=== PATIENT | male | born 1960 | race Caucasian/White ===

== ENCOUNTER 2018-11-25 02:22 | Inpatient (IN) | payer OTHER ==
[2018-11-25] MEDS ORDERED: cefTRIAXone\\ROCEPHIN 1 GM VIAL ONE (03:39)
[2018-11-25] MEDS ORDERED: Acetaminophen 325 MG TAB PO PRN (06:22)
[2018-11-25] MEDS ORDERED: Ondansetron PF 4 MG/2 ML Vial IVP PRN ×2 (06:22→20:32)
[2018-11-25] MEDS ORDERED: Sodium Chloride 0.9% 1,000 ML IV SCH (06:22)
[2018-11-25] MEDS ORDERED: Ondansetron ODT 4 MG TAB SL PRN (06:22)
[2018-11-25 06:49] VITALS: BMI 29.7
--- NOTE | 2018-11-25 08:41 | CT ---
PRELIMINARY REPORT/[facility]/EMERGENCY AFTER HOURS PROCEDURE: EXAM: CT Abdomen and Pelvis Without Contrast EXAM DATE/TIME: 11/25/2018 3:04 AM CLINICAL HISTORY: 58 years old, male; Signs and symptoms; Other: Hematuria; Patient HX: M60 reports blood in urine that began today, has never occurred before. PT did not have catheter in prior to today. PT reports abdom inal pain and pain during catheter insertion. PT denies blood in stool, denies vomiting blood, denies HX of kidney stones TECHNIQUE: Imaging protocol: Axial computed tomography images of the abdomen and pelvis without contrast. Bates l reformatted images were created and reviewed. COMPARISON: No relevant prior studies available. FINDINGS: ABDOMEN: Liver: Normal. Gallbladder and bile ducts: Cholelithiasis, without CT evidence of acute cholecystitis. Pancreas: Normal. Spleen: Normal. Adrenals: Normal. Kidneys and ureters: Nonobstructive 2 mm left nephrolithiasis. Stomach and bowel: Minimal scattered colonic diverticulosis. Appendix: Appendix is normal. PELVIS: Bladder: Urinary bladder decompressed by James catheter. Mild urinary bladder wall thickening with mi nimal adjacent fat stranding, possibly cystitis. Reproductive: Unremarkable as visualized. ABDOMEN and PELVIS: Intraperitoneal space: Normal. No free air. No significant fluid collection. Bones/joints: Degenerative changes of the hips and sacral iliac joints. Multilevel thoracolumbar spine degenerative changes. Soft tissues: Normal. Vasculature: Phleboliths within the pelvis. Mild atherosclerotic disease of the abdominal aorta and i liac arteries. Lymph nodes: Normal. No enlarged lymph nodes. IMPRESSION: Mild urinary bladder wall thickening with minimal adjacent fat stranding, possibly cystitis. Thank you for allowing us to participate in the care of your patient. Dictated and Authenticated by: Fox Keller MD 11/25/2018 3:27 AM Central Time ([place] & [place]) FINAL REPORT EMERGENCY AFTER HOURS CT STONE PROTOCOL: FINDINGS/IMPRESSION: I agree with the preliminary report provided by Jw. There is wall thickening involving the bladder with perivesicular fat stranding, suspicious for cystitis. No hydronephrosis evident. There is left-s ided nephrolithiasis. There are cortical calcifications within the right kidney. There is a gallstone within the gallbladder. There is scattered diverticula involving the colon. There are mild vascular calcifications involving the abdominal aorta. POS: BH
[2018-11-25] MEDS ORDERED: Prevnar 13-Val Conj/PF 0.5 ML SYRINGE IM ONE (09:15)
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
[2018-11-25] MEDS: Acetaminophen 325 MG TAB PO PRN ×2 (17:49→22:53)
[2018-11-25] MEDS ORDERED: Bisacodyl 10 MG SUPP PR PRN (20:35)
[2018-11-25] MEDS ORDERED: Nitroglycerin 0.4 MG TAB (25 Tab Bottle) SL PRN (20:35)
[2018-11-25] MEDS ORDERED: HALOPERIDOL DECANOATE IM SCH (20:45)
[2018-11-25] MEDS: Sodium Chloride 0.9% 1,000 ML IV SCH (20:58)
[2018-11-25] MEDS: Haloperidol 5 MG TAB PO SCH (20:59)
[2018-11-25] MEDS: Divalproex Sodium 250 MG (DR) TAB PO SCH (20:59)
[2018-11-25] MEDS ORDERED: Ibuprofen 600 MG TAB PO PRN (21:00)
[2018-11-26] MEDS: cefTRIAXone\\ROCEPHIN 1 GM in Sodium Chloride 0.9% 100 ML IVPB SCH (01:31)
[2018-11-26 06:47] LABS: #Eosinphils 0.5 thou/uL (0.0-0.7); #Lymphocytes 2.2 thou/uL (1.20-3.40); #Monocytes 0.8 thou/uL (0.11-0.59); #Neutrophils 3.3 thou/uL (1.40-6.50); %Basophils 0.6 % (0.0-1.0); %Lymphocytes 32.8 % (21.0-51.0); %Monocytes 11.2 % (0.0-10.0); %Neutrophils 48.4 % (42.0-75.0); Hemoglobin 12.2 g/dL (14.0-18.0); Mean Corpuscular HGB CONC 32.2 g/dL (32.0-36.0); Mean Corpuscular Hemoglobin 27.8 pg (27.0-31.0); Mean Corpuscular Volume 86.3 fL (78.0-98.0); Mean Platelet Volume 6.9 fL (7.4-10.4); Platelet Count 94 thou/uL (130-400); RBC Distribution Width 12.3 % (11.5-14.5); Red Blood Cell (RBC) Count 4.39 mill/uL (4.70-6.10); White Blood Cell (WBC) Count 6.7 thou/uL (4.8-10.8)
[2018-11-26 07:00] LABS: Anion Gap 8 mmol/L (10-20); BUN (Urea Nitrogen) 8 mg/dL (8.4-25.7); Calc. Creatinine Clearance 150 mL/min (70-130); Calcium 8.3 mg/dL (7.8-10.44); Carbon Dioxide 26 mmol/L (22-29); Chloride 113 mmol/L (98-107); Estimated GFR-MDRD Greater than 90; Glucose 82 mg/dL (70-105); Potassium 3.6 mmol/L (3.5-5.1); Sodium 143 mmol/L (136-145)
--- NOTE | 2018-11-26 07:45 | HP ---
PRIMARY CARE DOCTOR: Patient lives in a [facility] and sees Dr. Saul Uriostegui. CODE STATUS: Full code. TIME OF EVALUATION: 8:00 p.m. CHIEF COMPLAINT: For this patient is jey hematuria. HISTORY OF PRESENT ILLNESS: This is a 58-year-old male patient, past medical history of chronic pain, hep C, cirrhosis, GERD, encephalopathy, EtOH abuse, homeless, and peripheral neuropathy with leg weakness, came to the hospital after having jey hematuria. He was transferred from [place]. As per report, patient does not use James in the [facility]p. At baseline as per report, he is alert and oriented x2. Patient is not very cooperative to interview. No good information can be gathered at this point. James is still in place with hematuria. Urology has seen the patient and the plan is to remove James around 2:00 a.m. to see if hematuria resolves. Patient has not voided too much urine. We will place the patient on some NS and watch for urinary output. Was unable to obtain. Patient is not cooperative to interview. Answers very simple questions with yes or no. PAST MEDICAL HISTORY: As mentioned in the HPI. PAST SURGICAL HISTORY: Unable to obtain. PSYCH HISTORY: Schizophrenia, dementia, insomnia, and depression. FAMILY HISTORY: Reviewed and non contributory to current presentation. SOCIAL HISTORY: Patient lives in a long-term care facility in [facility]. Patient denies alcohol use. No drug use. Patient currently uses tobacco. Smokes cigarettes daily, has smoked for 30 years. KNOWN ALLERGIES: No known drug allergies reported. MEDICATION: 1. Aspirin. 2. Benztropine. 3. Bisacodyl. 4. Folic acid. 5. Haloperidol. 6. Lactulose. 7. Paroxetine. 8. Potassium. 9. Exelon. PHYSICAL EXAMINATION: VITAL SIGNS: On presentation, blood pressure 148/105 with heart rate 113, respiratory rate was 18, and oxygen saturation was 100 on room air. The vital signs have normalized. GENERAL APPEARANCE: The patient is alert and oriented x2, not very cooperative to interview. HEENT: Eyes; normal conjunctivae. Moist oral mucosa. Anicteric. No JVD. RESPIRATORY: Bilateral air entry. No rales. No wheezes. Symmetric expansion. CARDIOVASCULAR: Normal rate, regular rhythm. No murmurs. No gallop. No edema. ABDOMEN: Soft, although mildly tender in the lower abdomen. Normal bowel sounds. MUSCULOSKELETAL: Baseline range of motion. No sternal tenderness. SKIN: Warm, intact. No pallor. No rash. No redness. Peripheral pulses are present. Capillary refill seems to be intact. NEUROLOGIC: Unable to fully explore. As mentioned, patient is alert and oriented x2, seems to be at baseline as per medical records. PSYCH: Unable to fully explore. Patient is in good mood. LABORATORY DATA: Reviewed. The patient has a white count 9.5, hemoglobin 14.1, MCV 83.9, platelet count 110. Coagulation; PT 14.9 with INR 1.2, PTT 32.6. Chemistry ; sodium 142, potassium 3.5, chloride 106, carbon dioxide 25, anion gap 15, BUN 12 , creatinine 0.76, GFR greater than 90, glucose 95, calcium 9.1, creatine kinase not done. Total bilirubin 1. LFTs were negative. Troponin not done. Serum total protein 6.5, albumin 3.6, globulin 2.9, albumin globulin ratio is 1.2. Urine was done and showed large amount of nitrites, blood, glucosuria, white count 7 to 10, rbc's greater than 50. IMAGING STUDIES: Abdomen and pelvis CT was done. The patient has wall thickening involving the bladder with perivesicular fat stranding suspicious for cystitis. No hydronephrosis. Left-sided nephrolithiasis. There are cortical calcifications within the right kidney. There is a gallstone within the gallbladder. There is a scattered diverticula involving the colon. There are mild vascular calcification involving the abdominal aorta. ASSESSMENT AND PLAN: The patient will be placed in the hospital with following medical problems: 1. Hematuria. Urology has seen the patient. We will follow recommendations. Plan is to receive the James and see how the patient does. The patient has not much urinary output. We will start the patient on some low-dose NS given the low mentation of the patient. It is hard to say if the patient is eating properly. 2. History of gastroesophageal reflux disease. Reconcile home medications. 3. History of schizophrenia. Continue home medications. 4. History of encephalopathy. The patient is alert and oriented x2 as per report , this is the baseline for the patient. 5. Deep venous thrombosis prophylaxis. Continue SCDs. 6. Possible cystitis. We will continue the patient on Rocephin unless otherwise specified by Urology. We will follow cultures and adjust treatment as per sensitivity. Job ID: [id number] MTDD
[2018-11-26] MEDS: Thiamine 100 MG TAB PO SCH (08:07)
[2018-11-26] MEDS: Folic Acid 1 MG TAB PO SCH (08:07)
[2018-11-26] MEDS: Finasteride 5 MG TAB PO SCH (08:07)
[2018-11-26] MEDS: Potassium Chloride 10 MEQ TAB PO SCH (08:07)
[2018-11-26] MEDS: PARoxetine 20 MG TAB PO SCH (08:07)
[2018-11-26] MEDS: Tamsulosin HCl 0.4 MG CAP PO SCH (08:07)
[2018-11-26] MEDS: Haloperidol 5 MG TAB PO SCH ×2 (08:08→20:35)
[2018-11-26] MEDS: Acetaminophen 325 MG TAB PO PRN ×2 (08:08→14:49)
[2018-11-26] MEDS: Stress 600 With Zinc 1 TAB PO SCH (08:08)
[2018-11-26] MEDS: Divalproex Sodium 250 MG (DR) TAB PO SCH ×3 (08:09→20:35)
[2018-11-26] MEDS: Rivastigmine 9.5mg/24 Hour PATCH TOP SCH (09:07)
--- NOTE | 2018-11-26 09:48 | PDOC.PN ---
- Subjective Encounter Start Date: 11/26/18 Encounter Start Time: 09:47 Mr. Diane was seen today in follow-up of hematuria. He says he feels like he was" poisoned" because he slept all day yesterday. He notes " pain all over". - Objective Resuscitation Status - Order Detail: 11/25/18 20:32 Resuscitation Status Routine Resuscitation Status: FULL: Full Resuscitation MAR Reviewed: Yes Vital Signs & Weight: Vital Signs (12 hours) Temp Pulse Resp BP Pulse Ox 11/26/18 07:35 97.8 F 75 18 113/80 92 L 11/26/18 04:00 97.6 F 75 18 125/82 94 L 11/26/18 00:00 98.2 F 80 16 101/67 94 L Weight Weight 196 lb I&O: 11/25/18 11/26/18 11/27/18 06:59 06:59 06:59 Intake Total 1800 Output Total 1655 Balance 145 Result Diagrams: 11/26/18 06:18 11/26/18 06:18 Phys Exam - Physical Examination HEENT: PERRLA Respiratory: no wheezing, no rales, no rhonchi, clear to auscultation bilateral Cardiovascular: RRR, no significant murmur, no rub Gastrointestinal: soft, non-tender, no distention, positive bowel sounds Musculoskeletal: no edema, pulses present Dx/Plan (1) Hematuria Code(s): R31.9 - HEMATURIA, UNSPECIFIED Status: Acute (2) Urinary tract infection Status: Acute (3) Cirrhosis of liver Code(s): K74.60 - UNSPECIFIED CIRRHOSIS OF LIVER Status: Chronic (4) Schizophrenia Code(s): F20.9 - SCHIZOPHRENIA, UNSPECIFIED Status: Chronic - Plan * Hematuria- As per Urology- aspirin is on hold * UTI- will continue Rocephin- urine culture is in progress. * Possible Urinary retention- PSA was in the normal range. Continue Flomax and Finesteride, and voiding trail today * Schizophrenia- stable * Cirrhosis- compensated
[2018-11-26] MEDS: Sodium Chloride 0.9% 1,000 ML IV SCH (10:45)
--- NOTE | 2018-11-26 16:00 | PRG ---
DATE OF SERVICE: 11/26/2018 SUBJECTIVE: The patient is much more arousable and alert today, does answer questions, but still somewhat fatigued. He cannot really tell me why the catheter went in, in the first place, but does think that he maybe could not void well and possibly relieved, but these seems quite suggestive in his answers. OBJECTIVE: On exam, the catheter has already had been removed as it was previously draining clear urine and I had removed it around 6 in the morning. Per the nurses report, he actually voided twice for a decent amount and was bladder scanned for minimal. I only saw a BM filled diaper but no significant wetness. LABORATORY DATA: Laboratory values reveal the low platelets, which are relatively stable. Creatinine 0.66. PSA (11/26/18) 0.52. ASSESSMENT: A 58-year-old male who is admitted with hematuria, who may or may not have retention, who may or may not have BPH, but at this point, I think it is reasonable to continue tamsulosin and finasteride. Ensure he has no concern for constipation. Monitor urine culture and give him antibiotics as indicated. Monitor to ensure he continues to empty adequately and does not need the catheter replaced. Job ID: [id number] MTDD
[2018-11-27] MEDS: Sodium Chloride 0.9% 1,000 ML IV SCH ×2 (00:02→14:36)
[2018-11-27] MEDS: cefTRIAXone\\ROCEPHIN 1 GM in Sodium Chloride 0.9% 100 ML IVPB SCH (01:44)
[2018-11-27] MEDS: Acetaminophen 325 MG TAB PO PRN ×3 (01:48→15:43)
[2018-11-27] MEDS: Haloperidol 5 MG TAB PO SCH ×2 (08:09→20:15)
[2018-11-27] MEDS: Folic Acid 1 MG TAB PO SCH (08:09)
[2018-11-27] MEDS: Finasteride 5 MG TAB PO SCH (08:09)
[2018-11-27] MEDS: PARoxetine 20 MG TAB PO SCH (08:09)
[2018-11-27] MEDS: Thiamine 100 MG TAB PO SCH (08:09)
[2018-11-27] MEDS: Potassium Chloride 10 MEQ TAB PO SCH (08:09)
[2018-11-27] MEDS: Tamsulosin HCl 0.4 MG CAP PO SCH (08:09)
[2018-11-27] MEDS: Divalproex Sodium 250 MG (DR) TAB PO SCH ×3 (08:10→20:20)
[2018-11-27] MEDS: Stress 600 With Zinc 1 TAB PO SCH (08:10)
[2018-11-27] MEDS: Rivastigmine 9.5mg/24 Hour PATCH TOP SCH (08:10)
[2018-11-27 10:49] LABS: Bilirubin Negative (Negative); Blood, Urine Large (Negative); Clarity CLOUDY (Clear); Glucose, Urine (Dipstick) Negative (Negative); Leukocyte Small (Negative); Nitrite Negative (Negative); Protein, Urine (Dipstick) 300 mg/dL (Neg-Trace); Urobilinogen 0.2 mg/dL (0.2-1.0)
[2018-11-27 10:52] LABS: Bacteria/HPF None Seen HPF (None Seen); Hyaline Casts/LPF 7-10 HYALINE CAST LPF (0-3 Hyaline); Pathc Cast-AUWi Flag 1.85 (0-2.49); Squamous Epithelial 0-3 HPF (0-3)
[2018-11-27 10:58] LABS: Yeast-AUWi Flag 66.5 (0-25.0)
[2018-11-27 11:22] LABS: RBC/HPF GREATER THAN 50-TNTC HPF (0-3); Renal Epithelial None Seen HPF (0-3); Transitional Epithelial NONE SEEN HPF (0-3); Yeast-All Forms None Seen HPF (None Seen)
--- NOTE | 2018-11-27 12:58 | PRG ---
DATE OF SERVICE: 11/27/2018 SUBJECTIVE: The patient is more awake today than previously and complains of some urgency and frequency, but he has been scanned and had minimal residual left behind. He still has some hematuria, and I suspect this is creating the urgency for him. We have reviewed this and checking another urine. He has been afebrile with vital signs stable. His urine output has not been able to be recorded because some of them has been into a Depend. He has had multiple bowel movements into a Depend. PHYSICAL EXAMINATION: GENERAL: He is sitting up comfortably and able to converse. LABORATORY DATA: There are no new labs from today. I will check a urine. ASSESSMENT AND PLAN: We have a 58-year-old male, who is voiding well, but still has hematuria, now on tamsulosin and finasteride. Check a urine to ensure clearance of any infection or now concern for infection based on his significant bowel movements and otherwise monitor. He will deserve cystoscopy as an outpatient. Job ID: [id number]
--- NOTE | 2018-11-27 15:43 | PDOC.PN ---
- Subjective Encounter Start Date: 11/27/18 Encounter Start Time: 15:41 Mr. Diane was seen today in follow-up of Hematuria. His urine has been clearing. He appears comfortable, and is complaing less of pain. - Objective Resuscitation Status - Order Detail: 11/25/18 20:32 Resuscitation Status Routine Resuscitation Status: FULL: Full Resuscitation MAR Reviewed: Yes Vital Signs & Weight: Vital Signs (12 hours) Temp Pulse Resp BP Pulse Ox 11/27/18 11:59 97.8 F 84 18 126/76 97 11/27/18 11:49 97.8 F 84 18 126/76 97 11/27/18 08:00 97.9 F 77 14 121/80 95 11/27/18 04:46 98.1 F 75 16 117/71 93 L 11/27/18 04:20 98.1 F 75 16 117/71 93 L Weight Weight 196 lb I&O: 11/26/18 11/27/18 11/28/18 06:59 06:59 06:59 Intake Total 1800 2100 Output Total 1655 Balance 145 2100 Result Diagrams: 11/26/18 06:18 11/26/18 06:18 Phys Exam - Physical Examination HEENT: PERRLA Respiratory: no wheezing, no rales, no rhonchi, clear to auscultation bilateral Cardiovascular: RRR, no significant murmur, no rub Gastrointestinal: soft, non-tender, no distention, positive bowel sounds Musculoskeletal: no edema, pulses present Dx/Plan (1) Hematuria Code(s): R31.9 - HEMATURIA, UNSPECIFIED Status: Acute (2) Urinary tract infection Status: Acute (3) Cirrhosis of liver Code(s): K74.60 - UNSPECIFIED CIRRHOSIS OF LIVER Status: Chronic (4) Schizophrenia Code(s): F20.9 - SCHIZOPHRENIA, UNSPECIFIED Status: Chronic - Plan * Hematuria- improving * UTI- continue Rocephin, repeat culture is negative, initial culture is with normal skin ozzie * ? Urine retention- he has been voiding- continue Flomax and Proscar * Hopefully back to the [place] tomorrow .
[2018-11-28] MEDS: cefTRIAXone\\ROCEPHIN 1 GM in Sodium Chloride 0.9% 100 ML IVPB SCH (01:24)
[2018-11-28] MEDS: Sodium Chloride 0.9% 1,000 ML IV SCH ×2 (02:20→16:43)
[2018-11-28] MEDS: Tamsulosin HCl 0.4 MG CAP PO SCH (08:21)
[2018-11-28] MEDS: Divalproex Sodium 250 MG (DR) TAB PO SCH ×2 (08:21→15:56)
[2018-11-28] MEDS: Potassium Chloride 10 MEQ TAB PO SCH (08:21)
[2018-11-28] MEDS: PARoxetine 20 MG TAB PO SCH (08:21)
[2018-11-28] MEDS: Folic Acid 1 MG TAB PO SCH (08:21)
[2018-11-28] MEDS: Stress 600 With Zinc 1 TAB PO SCH (08:21)
[2018-11-28] MEDS: Rivastigmine 9.5mg/24 Hour PATCH TOP SCH (08:22)
[2018-11-28] MEDS: Finasteride 5 MG TAB PO SCH (08:22)
[2018-11-28] MEDS: Thiamine 100 MG TAB PO SCH (08:22)
[2018-11-28] MEDS: Haloperidol 5 MG TAB PO SCH (08:22)
--- NOTE | 2018-11-28 13:56 | PRG ---
DATE OF SERVICE: 11/28/2018 SUBJECTIVE: The patient is sitting up in bed, alert and oriented, has no complaints. Urgency is getting better. The urine is clearing. OBJECTIVE: VITAL SIGNS: He has been afebrile. Vital signs stable. GENERAL: He is sitting up in bed with a baseball hat on. LABORATORY DATA: There are no new labs. ASSESSMENT: We have a 58-year-old gentleman, admitted with hematuria, but does not appear to have significant retention as he has been able to adequately empty since the catheter was removed, but I have kept him on and we will continue tamsulosin and finasteride and ultimately, he will benefit from cystoscopy as an outpatient. We reviewed this in detail. Job ID: [id number]
--- NOTE | 2018-11-28 13:58 | PDOC.PN ---
- Subjective Encounter Start Date: 11/28/18 Encounter Start Time: 13:56 Mr. Jung was seen today in follow-up of UTI . He does not have any complaints. - Objective Resuscitation Status - Order Detail: 11/25/18 20:32 Resuscitation Status Routine Resuscitation Status: FULL: Full Resuscitation MAR Reviewed: Yes Vital Signs & Weight: Vital Signs (12 hours) Temp Pulse Resp BP Pulse Ox 11/28/18 12:00 98.0 F 88 20 123/80 96 11/28/18 08:15 98.4 F 97 16 130/80 93 L 11/28/18 03:56 98.2 F 90 17 141/82 H 94 L Weight Weight 196 lb I&O: 11/27/18 11/28/18 11/29/18 06:59 06:59 06:59 Intake Total 2100 2520 Output Total 1050 Balance 2100 1470 Result Diagrams: 11/26/18 06:18 11/26/18 06:18 Phys Exam - Physical Examination HEENT: PERRLA Respiratory: no wheezing, no rales, no rhonchi, clear to auscultation bilateral Cardiovascular: RRR, no significant murmur, no rub Gastrointestinal: soft, non-tender, no distention, positive bowel sounds Musculoskeletal: no edema, pulses present Dx/Plan (1) Hematuria Code(s): R31.9 - HEMATURIA, UNSPECIFIED Status: Acute (2) Urinary tract infection Status: Acute (3) Cirrhosis of liver Code(s): K74.60 - UNSPECIFIED CIRRHOSIS OF LIVER Status: Chronic (4) Schizophrenia Code(s): F20.9 - SCHIZOPHRENIA, UNSPECIFIED Status: Chronic - Plan * Hematuria- his urine has cleared. * Urine culture from 11/26 appears similar to the previous one from 2 days earlier. It is growing mixed organism- * He has been stable on Rocephin- will therefore change him to Omnicef * He is voiding without the cohen catheter- will continue Flomax and Proscar * He is stable for discharge back to the residential
[2018-11-28 16:41] VITALS: BP 138/84; TEMP 97.9
--- NOTE | 2018-11-29 02:50 | DIS ---
DATE OF ADMISSION: 11/25/2018 DATE OF DISCHARGE: 11/28/2018 DISCHARGE DISPOSITION: Back to his half-way facility. PRIMARY CARE PHYSICIAN: Dr. Saul Uriostegui. LONG-TERM CARE FACILITY: [facility]. DISCHARGE DIAGNOSES: 1. Hematuria. 2. Urinary tract infection. 3. Gastroesophageal reflux disease. 4. Schizophrenia. 5. Metabolic encephalopathy. DISCHARGE MEDICATIONS: Include; 1. Flomax 0.4 mg p.o. daily. 2. Finasteride 5 mg daily. 3. Omnicef 300 mg twice daily. 4. Vitamin B complex #1, one tablet daily. 5. Thiamine 50 mg daily. 6. Exelon patch 9.5 mg topical daily. 7. Klor-Con 10 mEq daily. 8. Paxil 20 mg daily. 9. Omeprazole 20 mg twice a day. 10. Nitrostat 0.4 mg sublingual p.r.n. 11. Lactulose q.i.d. 12. Haloperidol 500 mg IM monthly. 13. Haloperidol 10 mg twice daily. 14. Folic acid 1 mg daily. 15. Depakote 250 mg t.i.d. 16. Biscolax 10 mg FL daily. 17. Benztropine 0.5 mg twice a day. 18. Tylenol No. 3 one to two tablets q.4 hours as needed. CODE STATUS: Full code. ALLERGIES: NO KNOWN DRUG ALLERGIES. PROCEDURES DONE DURING ADMISSION: The patient had a CT scan of the abdomen and pelvis in which there is evidence of thickening of the bladder with some perivesicular fat stranding suspicious for cystitis. There was no hydronephrosis. There was a left-sided nephrolithiasis and cortical calcifications in the right kidney. HOSPITAL COURSE: Mr. Jung is a pleasant 58-year-old gentleman, who was sent to the hospital due to jey hematuria. He was admitted and Urology was consulted. There was concern that he may have some urinary obstruction, so initially a James catheter was placed. He was found to have urine which was consistent not only with hematuria, but also with the urinary tract infection. It is possible that this represented a hemorrhagic cystitis. He was placed on Flomax and Proscar due to concern for urinary retention. The James was taken out a few days later and he was able to void without difficulty. Therefore, it looks like the urinary retention had resolved and the James was removed and he had no difficulty voiding. His urine cleared. Urine culture grew mixed ozzie on both urine samples. He did well on Rocephin. Therefore, he will be discharged home on Omnicef for 1 week. Job ID: [id number]
== END 2018-11-28 17:45 | DRG 689 ==
LOC: ERS 02:22 → SURG B 06:26
PROVIDERS: ADMIT Hospitalist; ATTEND Hospitalist
PROC: 0T9B70Z Drainage of Bladder with Drainage Device, Via Natural or Artificial Opening (ICD-10-PCS; principal; 2018-11-25)
DX: N30.91 Cystitis, unspecified with hematuria (principal); G93.41 Metabolic encephalopathy; F20.9 Schizophrenia, unspecified; F32.9 Major depressive disorder, single episode, unspecified; F03.90 Unspecified dementia, unspecified severity, without behavioral disturbance, psychotic disturbance, mood disturbance, and anxiety; K70.30 Alcoholic cirrhosis of liver without ascites; B19.20 Unspecified viral hepatitis C without hepatic coma; K21.9 Gastro-esophageal reflux disease without esophagitis; G89.29 Other chronic pain; N20.0 Calculus of kidney; G62.9 Polyneuropathy, unspecified; F17.210 Nicotine dependence, cigarettes, uncomplicated; Z79.899 Other long term (current) drug therapy; Z79.82 Long term (current) use of aspirin; Z99.3 Dependence on wheelchair
CPT/HCPCS: 36415; 51798; 74176; 80048; 81003; 81015; 85025; 87077; 87086; 87186; 96365; G0103; J0696; J3490

== ENCOUNTER 2020-01-09 17:59 | Inpatient (IN) | payer OTHER ==
--- NOTE | 2020-01-09 19:59 | PDOC.EVN ---
Event Note - Event Note Event Note: [id number] dictated
[2020-01-09] MEDS: Sodium Chloride 0.9% 1,000 ML IV SCH (22:28)
[2020-01-09] MEDS: Morphine 4 MG/ML VIAL SLOW IVP SCH (22:28)
--- NOTE | 2020-01-10 00:43 | HP ---
CHIEF COMPLAINT: Abdominal pain and hematuria. HISTORY OF PRESENT ILLNESS: Mr. Jung is a 59-year-old male with past medical history of hepatitis C, liver cirrhosis, schizophrenia, among others, presents to [facility] with abdominal pain and hematuria. Workup in the emergency room including CT of the abdomen and pelvis, the patient was diagnosed with left renal cell carcinoma. Urologist, Dr. Franklin was consulted, who recommended transfer the patient to our facility for evaluation and further management. The patient is a very poor historian. Other than saying that he is having abdominal pain, he is not giving any significant history. At baseline, he is awake, alert, oriented x2. The patient currently is living at a nursing care facility. The patient is being admitted to hospital for further management. PAST MEDICAL HISTORY: 1. Chronic pain. 2. Hepatitis C, cirrhosis. 3. GERD. 4. Encephalopathy, EtOH abuse. 5. Peripheral neuropathy. PAST SURGICAL HISTORY: Unable to obtain at this time. PAST PSYCHIATRIC HISTORY: Includes schizophrenia, dementia, insomnia, depression. SOCIAL HISTORY: The patient lives in a long-term care facility. Uses tobacco. Smokes cigarettes daily. History of alcohol abuse, stopped when he was hospitalized back in March 2019. FAMILY HISTORY: Unable to obtain. The patient is not giving any history. ALLERGIES: NO KNOWN ALLERGIES. CURRENT MEDICATIONS: See home medication reconciliation form for updated medications. REVIEW OF SYSTEMS: The patient is a poor historian, but review of 14 systems negative except what is mentioned in history of present illness. PHYSICAL EXAMINATION: GENERAL: The patient is awake, in mild distress. VITAL SIGNS: Blood pressure 119/70, pulse is 73, respiratory rate is 17, oxygen saturation 98% on room air, temperature 97.7. HEAD AND NECK: Normocephalic and atraumatic. NECK: Supple. CHEST: Fair bilateral air entry. ABDOMEN: Soft. Lower abdominal tenderness. Bowel sounds present. NEUROLOGIC: The patient is awake, alert, moving extremities. PSYCH: Unable to assess. EXTREMITIES: No clubbing. No cyanosis. GENITOURINARY: No suprapubic tenderness. LABORATORY DATA: WBC 6.4, hemoglobin 9.6, MCV 85, platelets 99. Sodium 143, potassium 3.8, BUN 13, and creatinine 0.7, albumin is 2.9. CT abdomen and pelvis was done. Official report is not available at this time, but as per ER physician, the patient is being diagnosed with renal cell carcinoma based on imaging studies. ASSESSMENT: 1. Hematuria. 2. Abdominal pain, lower. 3. Renal cell carcinoma, new diagnosis? 4. Schizophrenia. 5. Encephalopathy, history of alcohol abuse. 6. Liver cirrhosis/hepatitis C. PLAN: 1. Admit. 2. Urologist, Dr. Franklin was consulted for evaluation and further management. 3. Metastatic workup is being ordered by urologist. 4. Reconcile home medications. 5. DVT prophylaxis as appropriate. 6. IV fluids. 7. Expected length of stay, 2 midnights or more. Job ID: [id number]
[2020-01-10 01:31] VITALS: BMI 26.2
[2020-01-10 05:08] LABS: #Eosinphils 0.3 thou/uL (0.0-0.7); #Lymphocytes 1.1 thou/uL (1.20-3.40); #Monocytes 0.7 thou/uL (0.11-0.59); #Neutrophils 3.1 thou/uL (1.40-6.50); %Basophils 0.4 % (0.0-1.0); %Lymphocytes 21.4 % (21.0-51.0); %Monocytes 13.9 % (0.0-10.0); %Neutrophils 58.2 % (42.0-75.0); Hemoglobin 10.6 g/dL (14.0-18.0); Mean Corpuscular HGB CONC 32.3 g/dL (32.0-36.0); Mean Corpuscular Hemoglobin 27.8 pg (27.0-31.0); Mean Platelet Volume 6.5 fL (7.4-10.4); Platelet Count 82 thou/uL (130-400); RBC Distribution Width 14.5 % (11.5-14.5); Red Blood Cell (RBC) Count 3.83 mill/uL (4.70-6.10); White Blood Cell (WBC) Count 5.3 thou/uL (4.8-10.8)
[2020-01-10 05:24] LABS: ALT (SGPT) 11 U/L (8-55); AST (SGOT) 25 U/L (5-34); Albumin 2.8 g/dL (3.4-4.8); Alkaline Phosphatase 69 U/L (40-110); Anion Gap 12 mmol/L (10-20); BUN (Urea Nitrogen) 11 mg/dL (8.4-25.7); Bilirubin, Total 0.9 mg/dL (0.2-1.2); Calc. Creatinine Clearance 132 mL/min (70-130); Calcium 8.2 mg/dL (7.8-10.44); Carbon Dioxide 25 mmol/L (23-31); Chloride 109 mmol/L (98-107); Estimated GFR-MDRD Greater than 90; Globulin 3.6 g/dL (2.4-3.5); Glucose 91 mg/dL (80-115); Potassium 3.5 mmol/L (3.5-5.1); Protein, Total 6.4 g/dL (5.8-8.1); Sodium 142 mmol/L (136-145)
[2020-01-10] MEDS: Morphine 2 MG/ML SYRINGE SLOW IVP PRN ×3 (08:07→21:07)
[2020-01-10] MEDS: ALPRAZolam 0.25 MG TAB PO PRN (11:31)
--- NOTE | 2020-01-10 12:18 | PRG ---
DATE OF SERVICE: 01/10/2020 SUBJECTIVE: No acute events overnight. The patient is no more talkative than he was yesterday, telling me that he is fine, but will not offer any other answers to my questions. REVIEW OF SYSTEMS: Unable to obtain review of systems. OBJECTIVE: VITAL SIGNS: Afebrile. Vitals are stable. Urine output 400 with several voids into his diapers. GENERAL: No acute distress. LUNGS: Unlabored breathing. Symmetric chest expansion. ABDOMEN: Soft, nontender, and nondistended today. Suprapubic pain has resolved. : Urine is almost entirely clear. EXTREMITIES: Without cyanosis or edema. LABORATORY DATA: Hemoglobin 10.6. Creatinine 0.65, albumin 2.8. AST, ALT, and alkaline phosphatase all normal. ASSESSMENT AND PLAN: Hospital day 2, renal mass with hematuria. Hematuria has resolved at this point. He likely has long-standing bladder dysfunction either due to cognitive inhibition versus bladder outlet obstruction. Awaiting metastatic workup for renal cell carcinoma. CT chest may be done today with MRI tomorrow and renal biopsy on Sunday. He remains to be seen if he will undergo nephrectomy or will require systemic therapy. TIME SPENT: Greater than 30 minutes spent in direct patient care. Job ID: [id number]
--- NOTE | 2020-01-10 14:12 | CON ---
DATE OF CONSULTATION: 01/09/2020 REASON FOR CONSULTATION: Renal mass. CHIEF COMPLAINT: Abdominal pain, hematuria. HISTORY OF PRESENT ILLNESS: This is a 59-year-old male with a history of schizophrenia, hepatitis, and cirrhosis, currently residing at a retirement in [place]. The patient does not answer questions and apparently his baseline is mostly nonverbal. He developed abdominal pain and gross hematuria today on 01/08 and was seen at [facility] where imaging showed a large right renal mass with renal vein involvement and the patient was having significant hematuria. Apparently, a catheter was placed; however, he was having significant spasms with leakage around the catheter, so this was removed. In speaking with the patient, he confirms that he is having abdominal pain, but does not offer any other information or answers to my questions. We attempted to reach next of kin from the emergency room with no success. PAST MEDICAL HISTORY: 1. Hepatitis C. 2. Cirrhosis. 3. Schizophrenia. 4. Alcohol abuse. 5. Reflux. 6. Enlarged prostate with lower urinary tract symptoms. PAST SURGICAL HISTORY: There is no mention in the chart of prior surgeries and the patient is unable to answer. FAMILY HISTORY: Unable to obtain. SOCIAL HISTORY: Current everyday smoker. Prior alcohol abuse; however, sober since 03/2019. ALLERGIES: NO KNOWN DRUG ALLERGIES. MEDICATIONS: Reviewed, pertinent for: 1. Tamsulosin. 2. Finasteride. REVIEW OF SYSTEMS: Unable to obtain. PHYSICAL EXAMINATION: VITAL SIGNS: Afebrile. Vitals are stable. GENERAL: No acute distress, non-conversant. HEAD: Normocephalic and atraumatic. NECK: Supple. Trachea midline. LUNGS: Breathing unlabored. Symmetric chest expansion. HEART: Regular rate and rhythm. ABDOMEN: Soft, nondistended, tender over the right side of his abdomen, no flank tenderness. GENITOURINARY: Mild suprapubic tenderness. Normal penis and testicle exam. Urinal with light pink urine without clots. EXTREMITIES: Without cyanosis or edema. NEUROLOGIC: Somnolent. The patient will not respond to determine if he is oriented. PSYCHIATRIC: As described above. LABORATORY VALUES: Hemoglobin 9.3. Creatinine 0.73. IMAGING DATA: I personally reviewed with CT showing small thick-walled bladder and large right renal mass with renal vein involvement, questionable IVC involvement. ASSESSMENT AND PLAN: 1. Right renal mass. 2. Hematuria. The patient will be admitted for pain control and to monitor his hemoglobin. He will require metastatic workup with CT chest, MRI abdomen to evaluate for IVC involvement, and bone scan. Renal biopsy ordered. This will likely occur on Sunday. For now, he is emptying his bladder and having very minimal hematuria. I see no reason to put a catheter in him currently. His urinary symptoms are likely longstanding and possibly due to cognitive inhibition. TIME SPENT: Greater than 70 minutes spent in the patient's care. Job ID: [id number]
--- NOTE | 2020-01-10 14:18 | PDOC.HOSPP ---
- Subjective Encounter Date: 01/10/20 Encounter Time: 07:40 Subjective: Pt seen for followup re: renal mass. Nonverbal, unable to obtain ROS. - Objective Vital Signs & Weight: Vital Signs (12 hours) Temp Pulse Resp BP Pulse Ox 01/10/20 11:18 97.9 F 88 18 111/55 L 97 01/10/20 07:32 97.9 F 90 16 129/76 94 L 01/10/20 04:44 98.2 F 94 16 130/73 94 L Weight Admit Weight 172 lb Weight 172 lb 14.4 oz I&O: 01/09/20 01/10/20 01/11/20 06:59 06:59 06:59 Output Total 400 Balance -400 Result Diagrams: 01/10/20 04:32 01/10/20 04:32 Additional Labs: Labs and MARs reviewed by md Hospitalist ROS - Medication Medications: Active Medications Generic Name Dose Route Start Last Admin Trade Name Freq PRN Reason Stop Dose Admin Alprazolam 0.25 mg 01/10/20 10:35 01/10/20 11:31 Xanax PO 0.25 mg BIDPRN PRN Administration Anxiety Sodium Chloride 1,000 mls @ 75 mls/hr 01/09/20 19:45 01/09/20 22:28 Normal Saline 0.9% IV 1,000 mls .[id number] JENNA Administration Morphine Sulfate 4 mg 01/09/20 22:15 01/09/20 22:28 Morphine SLOW IVP 01/10/20 23:59 4 mg NOW JENNA Administration Morphine Sulfate 2 mg 01/10/20 07:30 01/10/20 11:40 Morphine SLOW IVP 2 mg Q4H PRN Administration Pain - Exam General Appearance: awake alert Eye: anicteric sclera ENT: moist mucosa Neck: supple Heart: RRR Respiratory: CTAB Gastrointestinal: soft, non-tender Extremities: no cyanosis Psychiatric: normal affect Hosp A/P (1) Renal mass Code(s): N28.89 - OTHER SPECIFIED DISORDERS OF KIDNEY AND URETER Status: Acute (2) Hematuria Code(s): R31.9 - HEMATURIA, UNSPECIFIED Status: Acute (3) Hep C w/o coma, chronic Code(s): B18.2 - CHRONIC VIRAL HEPATITIS C Status: Chronic (4) Schizophrenia Code(s): F20.9 - SCHIZOPHRENIA, UNSPECIFIED Status: Chronic - Plan Awaiting workup of renal mass. Hematuria improving. Nicotine patch for tobacco withdrawal. PRN IV morphine for pain.
[2020-01-10] MEDS: Nicotine 21 MG PATCH TD SCH (16:11)
--- NOTE | 2020-01-10 18:00 | CT ---
CT THORAX WITH CONTRAST: DATE: 01/10/2020 HISTORY: 59-year-old male with renal cell carcinoma. Evaluate for pulmonary metastasis. FINDINGS: There are no suspicious pulmonary nodules. No pleural effusion or pneumothorax. Mild subsegmental ate lectasis at posterior bases of bilateral lower lobes. No consolidation or pulmonary edema. Old bilateral posterior rib hypertrophic changes, including degenerative changes at thoracic vertebral ju nctions. Perhaps these represent old healed rib fracture deformities. There old left posterior lateral sixth rib fracture deformity. No thoracic aortic aneurysm or dissection. No mediastinal or hi lar lymphadenopathy. Calcified gallstone. Moderately large right renal neoplastic tumor mass. 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 IMPRESSION: no evidence of metastatic disease in the thoracic cavity.
[2020-01-10] MEDS: Sodium Chloride 0.9% 1,000 ML IV SCH ×2 (18:07→18:34)
[2020-01-11] MEDS: Morphine 4 MG/ML VIAL SLOW IVP SCH (00:10)
[2020-01-11] MEDS: Morphine 2 MG/ML SYRINGE SLOW IVP PRN ×4 (00:10→20:01)
[2020-01-11] MEDS: ALPRAZolam 0.25 MG TAB PO PRN (08:29)
[2020-01-11] MEDS: Sodium Chloride 0.9% 1,000 ML IV SCH ×2 (09:34→23:20)
[2020-01-11] MEDS ORDERED: ALPRAZolam 0.25 MG TAB PO SCH (11:00)
[2020-01-11] MEDS: Nicotine 21 MG PATCH TD SCH (11:17)
--- NOTE | 2020-01-11 13:33 | NM ---
NUCLEAR MEDICINE WHOLE BODY BONE SCAN: COMPARISON: None TECHNIQUE: Patient was administered 27.10 mCi of technetium 99m MDP intravenously. Whole body delayed imaging is performed. FINDINGS: Suboptimal evaluation. Patient has dementia and is unable to complete images. There does appear to be uptake involving the anterior lower right ribs. Findings may represent posttraumatic change. Additionally there is uptake along the anterior right first rib. There is spillage of radiotracer in the patient's diaper which limits evaluation of the right aspect of the hip and femur. No definite scintigraphic evidence of osseous metastases. Uptake in the right upper extremity is presumed to be secondary to injection. IMPRESSION: Limited evaluation. No definite scintigraphic evidence of osseous metastases. Transcribed Date/Time: 01/11/2020 1:46 PM
--- NOTE | 2020-01-11 13:52 | PDOC.HOSPP ---
- Subjective Encounter Date: 01/11/20 Encounter Time: 07:40 Subjective: Pt seen for followup re: kidney mass. Speaking today, denies any complaints. - Objective Vital Signs & Weight: Vital Signs (12 hours) Temp Pulse Resp BP Pulse Ox 01/11/20 08:00 97 01/11/20 07:39 97.6 F 81 18 120/65 97 Weight Admit Weight 172 lb Weight 172 lb 14.4 oz I&O: 01/10/20 01/11/20 01/12/20 06:59 06:59 06:59 Intake Total 900 1985 Output Total 400 150 Balance -749 708 3046 Result Diagrams: 01/10/20 04:32 01/10/20 04:32 Additional Labs: Labs and MARs reviewed by la Hospitalist ROS - Review of Systems Respiratory: denies: cough, shortness of breath, SOB with excertion, pleuritic pain, wheezing Cardiovascular: denies: chest pain, palpitations, orthopnea, paroxysmal noc. dyspnea, edema, light headedness - Medication Medications: Active Medications Generic Name Dose Route Start Last Admin Trade Name Freq PRN Reason Stop Dose Admin Alprazolam 0.25 mg 01/10/20 10:35 01/11/20 08:29 Xanax PO 0.25 mg BIDPRN PRN Administration Anxiety Sodium Chloride 1,000 mls @ 75 mls/hr 01/09/20 19:45 01/11/20 09:34 Normal Saline 0.9% IV 1,000 mls .[id number] JENNA Administration Morphine Sulfate 2 mg 01/10/20 07:30 01/11/20 11:11 Morphine SLOW IVP 2 mg Q4H PRN Administration Pain Nicotine 21 mg 01/10/20 11:00 01/11/20 11:17 Nicoderm Patch TD 21 mg 1100 JENNA Administration - Exam General Appearance: awake alert Eye: anicteric sclera ENT: normocephalic atraumatic Neck: supple, no JVD Heart: RRR, no rubs Respiratory: CTAB Gastrointestinal: soft, non-tender Psychiatric: normal affect, normal behavior Hosp A/P (1) Renal mass Code(s): N28.89 - OTHER SPECIFIED DISORDERS OF KIDNEY AND URETER Status: Acute (2) Hematuria Code(s): R31.9 - HEMATURIA, UNSPECIFIED Status: Acute (3) Hep C w/o coma, chronic Code(s): B18.2 - CHRONIC VIRAL HEPATITIS C Status: Chronic (4) Schizophrenia Code(s): F20.9 - SCHIZOPHRENIA, UNSPECIFIED Status: Chronic - Plan CT chest: no mets Awaiting workup of renal mass. Hematuria improved Continue nicotine patch for tobacco withdrawal. Continue PRN IV morphine for pain.
[2020-01-11] MEDS: Acetaminophen 650 MG/20.3 ML UDCUP PO PRN ×2 (14:14→21:08)
[2020-01-11] MEDS ORDERED: Haloperidol Lactate 5 MG/ML VIAL IM PRN (15:12)
[2020-01-11] MEDS ORDERED: Benztropine Mesylate 2 MG/2 ML VIAL IM PRN (15:27)
[2020-01-12] MEDS: Acetaminophen 650 MG/20.3 ML UDCUP PO PRN (03:20)
[2020-01-12] MEDS: Morphine 2 MG/ML SYRINGE SLOW IVP PRN ×3 (03:49→19:55)
[2020-01-12] MEDS: ALPRAZolam 0.25 MG TAB PO PRN ×2 (04:06→19:33)
[2020-01-12] MEDS ORDERED: Nitroglycerin 0.4 MG TAB (25 Tab Bottle) SL PRN (09:31)
[2020-01-12 09:38] LABS: INR-International Normal Ratio 1.3; Prothrombin Time 16.1 sec (12.0-14.7)
[2020-01-12] MEDS ORDERED: Potassium Chloride 10 MEQ TAB PO SCH (10:15)
[2020-01-12] MEDS ORDERED: Divalproex Sodium 250 MG (DR) TAB PO SCH (10:15)
[2020-01-12] MEDS ORDERED: Haloperidol 5 MG TAB PO SCH (10:15)
[2020-01-12] MEDS: Nicotine 21 MG PATCH TD SCH (10:30)
--- NOTE | 2020-01-12 11:25 | PQF ---
AZAR HENDRICKSRAGHU [id number] [id number] CLINICAL DOCUMENTATION IMPROVEMENT CLARIFICATION FORM: ICD-10 Updated PLEASE DO AN ADDENDUM TO THE PROGRESS NOTE WITH ANY DOCUMENTATION UPDATES OR ADDITIONS AND CARRY THROUGH TO DC SUMMARY. THANK YOU. DATE: 01/12/2020 , 01/13/2020 ATTN:DR. Homa COLLADO Please exercise your independent, professional judgment in responding to the clarification form. Clinical indicators are provided on the bottom of this form for your review. Please check appropriate box(s): Encephalopathy: Type: [ ] Acute [ ] Chronic Etiology: [ ] Hypertensive [ ] Metabolic [ ] Toxic [ ] Hepatic w/o Coma [ ] Hypoxic [ ] Septic [ ] Drug induced: [ ] Unspecified [ ] in the setting of underlying dementia [ ] Other (please specify) [ ] Other diagnosis [ ] Unable to determine In addition, please specify: Present on Admission (POA): [ ] Yes [ ] No [ ] Unable to determine For continuity of documentation, please document condition throughout progress notes and discharge summary. Thank You. CLINICAL INDICATORS - SIGNS / SYMPTOMS / LABS / RESULTS AND LOCATION IN EMR 01/08 H&P ( [facility]) PT IS VERY POOR HISTORIAN, AT BASELINE, HE IS AWAKE, ALERT, ORIENTED X 2. PMH: 4). ENCEPHALOPATHY, ETOH ABUSE; PAST PSYCHIATRIC HISTORY: DEMENTIA, SCHIZOPHRENIA ASSESSMENT: 5). ENCEPHALOPATHY, HISTORY OF ALCOHOL ABUSE. RISK: HX OF ALCOHOL ABUSE, ENCEPHALOPATHY, LIVER CIRRHOSIS/HEP C ( H&P/VINAY) TREATMENTS: IV FLUIDS (01/08 - PRESENT) THANK YOU! EVAN (This form is maintained as a part of the permanent medical record) 2014 [email or web address], [employer]. All Rights Reserved [email or web address] [email or web address]
[2020-01-12] MEDS: Phenazopyridine HCl 97.5 MG TABLET PO SCH ×2 (14:49→19:33)
[2020-01-12] MEDS: Sodium Chloride 0.9% 1,000 ML IV SCH (14:50)
[2020-01-12] MEDS: Divalproex Sodium 250 MG (DR) TAB PO SCH ×2 (15:48→19:52)
--- NOTE | 2020-01-12 18:12 | PDOC.HOSPP ---
- Subjective Encounter Date: 01/12/20 Encounter Time: 07:00 Subjective: Pt seen for followup re: kidney tumor. Denies chest pain or shortness of breath. - Objective Vital Signs & Weight: Vital Signs (12 hours) Temp Pulse Resp BP Pulse Ox 01/12/20 16:00 98.4 F 92 18 128/78 96 01/12/20 12:00 98.2 F 96 18 132/80 95 01/12/20 08:10 97.8 F 84 16 125/77 96 01/12/20 08:00 96 Weight Admit Weight 172 lb Weight 172 lb 14.4 oz I&O: 01/11/20 01/12/20 01/13/20 06:59 06:59 06:59 Intake Total 900 3206 1992 Output Total 150 Balance 750 3206 1992 Result Diagrams: 01/10/20 04:32 01/10/20 04:32 Additional Labs: Labs and MARs reviewed by nc Hospitalist ROS - Review of Systems Cardiovascular: denies: chest pain, palpitations, orthopnea, paroxysmal noc. dyspnea, edema, light headedness Genitourinary: denies: dysuria, frequency, incontinence, hematuria, retention - Medication Medications: Active Medications Generic Name Dose Route Start Last Admin Trade Name Freq PRN Reason Stop Dose Admin Acetaminophen 650 mg 01/11/20 09:59 01/12/20 03:20 Tylenol Elixir PO 650 mg Q6H PRN Administration Pain Alprazolam 0.25 mg 01/10/20 10:35 01/12/20 04:06 Xanax PO 0.25 mg BIDPRN PRN Administration Anxiety Divalproex Sodium 250 mg 01/12/20 15:00 01/12/20 15:48 Depakote PO 250 mg TID JENNA Administration Haloperidol Lactate 5 mg 01/11/20 15:12 01/12/20 08:57 Haldol IM 5 mg Q6H PRN Administration Agitation Sodium Chloride 1,000 mls @ 75 mls/hr 01/09/20 19:45 01/12/20 14:50 Normal Saline 0.9% IV 1,000 mls .[id number] JENNA Administration Morphine Sulfate 2 mg 01/10/20 07:30 01/12/20 10:24 Morphine SLOW IVP 2 mg Q4H PRN Administration Pain Nicotine 21 mg 01/10/20 11:00 01/12/20 10:30 Nicoderm Patch TD 21 mg 1100 JENNA Administration Rivastigmine 13.3 Mg 1 each 01/12/20 10:00 01/12/20 10:30 /24 Hour Patch TOP 1 each Q24H JENNA Administration Phenazopyridine HCl 97.5 mg 01/12/20 13:00 01/12/20 14:49 Azo Standard PO 97.5 mg PC JENNA Administration - Exam General Appearance: awake alert Eye: anicteric sclera ENT: normocephalic atraumatic Neck: supple, no lymphadenopathy, no carotid bruit Heart: RRR Respiratory: CTAB Gastrointestinal: soft, no hepatomegaly Extremities: no cyanosis Psychiatric: normal affect, normal behavior, oriented to person Hosp A/P (1) Renal mass Code(s): N28.89 - OTHER SPECIFIED DISORDERS OF KIDNEY AND URETER Status: Acute (2) Hematuria Code(s): R31.9 - HEMATURIA, UNSPECIFIED Status: Acute (3) Hep C w/o coma, chronic Code(s): B18.2 - CHRONIC VIRAL HEPATITIS C Status: Chronic (4) Schizophrenia Code(s): F20.9 - SCHIZOPHRENIA, UNSPECIFIED Status: Chronic - Plan CT guided biopsy could not be done today because of equipment failure, hopefully biopsy tomorrow. Continue nicotine patch. Continue PRN IV morphine for pain.
[2020-01-12] MEDS: PARoxetine 20 MG TAB PO SCH (19:53)
[2020-01-12] MEDS: Finasteride 5 MG TAB PO SCH (19:53)
[2020-01-12] MEDS: Tamsulosin HCl 0.4 MG CAP PO SCH (19:53)
[2020-01-13] MEDS: Morphine 2 MG/ML SYRINGE SLOW IVP PRN ×3 (00:18→22:51)
[2020-01-13] MEDS: Sodium Chloride 0.9% 1,000 ML IV SCH ×3 (04:42→19:38)
[2020-01-13] MEDS: Haloperidol 5 MG TAB PO SCH (08:10)
[2020-01-13] MEDS: Phenazopyridine HCl 97.5 MG TABLET PO SCH ×3 (08:10→18:14)
[2020-01-13] MEDS: Divalproex Sodium 250 MG (DR) TAB PO SCH ×3 (08:10→21:57)
[2020-01-13] MEDS: Potassium Chloride 10 MEQ TAB PO SCH (08:23)
[2020-01-13] MEDS: Nicotine 21 MG PATCH TD SCH (11:25)
--- NOTE | 2020-01-13 13:06 | PDOC.HOSPP ---
- Subjective Encounter Date: 01/13/20 Encounter Time: 07:00 Subjective: Pt seen for followup re: renal mass. Denies chest pain. Awaiting bx. - Objective Vital Signs & Weight: Vital Signs (12 hours) Temp Pulse Resp BP Pulse Ox 01/13/20 07:45 97.8 F 90 20 114/76 96 01/13/20 04:00 98.0 F 92 20 116/72 Weight Admit Weight 172 lb Weight 172 lb 14.4 oz I&O: 01/12/20 01/13/20 01/14/20 06:59 06:59 06:59 Intake Total 3206 1993 Output Total 150 Balance 3206 1843 Result Diagrams: 01/10/20 04:32 01/10/20 04:32 Additional Labs: Labs and MARs reviewed by al Hospitalist ROS - Review of Systems Cardiovascular: denies: chest pain, palpitations, orthopnea, paroxysmal noc. dyspnea, edema, light headedness Genitourinary: reports: hematuria. denies: dysuria, frequency, incontinence, retention - Medication Medications: Active Medications Generic Name Dose Route Start Last Admin Trade Name Freq PRN Reason Stop Dose Admin Acetaminophen 650 mg 01/11/20 09:59 01/12/20 03:20 Tylenol Elixir PO 650 mg Q6H PRN Administration Pain Alprazolam 0.25 mg 01/10/20 10:35 01/12/20 19:33 Xanax PO 0.25 mg BIDPRN PRN Administration Anxiety Divalproex Sodium 250 mg 01/12/20 15:00 01/13/20 08:10 Depakote PO 250 mg TID JENNA Administration Finasteride 5 mg 01/12/20 21:00 01/12/20 19:53 Proscar PO 5 mg HS JENNA Administration Haloperidol 10 mg 01/13/20 09:00 01/13/20 08:10 Haldol PO 10 mg DAILY JENNA Administration Haloperidol Lactate 5 mg 01/11/20 15:12 01/12/20 08:57 Haldol IM 5 mg Q6H PRN Administration Agitation Sodium Chloride 1,000 mls @ 75 mls/hr 01/09/20 19:45 01/13/20 04:42 Normal Saline 0.9% IV 1,000 mls .[id number] JENNA Administration Morphine Sulfate 2 mg 01/10/20 07:30 01/13/20 04:40 Morphine SLOW IVP 2 mg Q4H PRN Administration Pain Nicotine 21 mg 01/10/20 11:00 01/13/20 11:25 Nicoderm Patch TD 21 mg 1100 JENNA Administration Rivastigmine 13.3 Mg 1 each 01/12/20 10:00 01/13/20 11:25 /24 Hour Patch TOP 1 each Q24H JENNA Administration Paroxetine HCl 60 mg 01/12/20 21:00 01/12/20 19:53 Paxil PO 60 mg HS JENNA Administration Phenazopyridine HCl 97.5 mg 01/12/20 13:00 01/13/20 08:10 Azo Standard PO 97.5 mg PC JENNA Administration Potassium Chloride 10 meq 01/13/20 09:00 01/13/20 08:23 Klor-Con 10 PO 10 meq DAILY JENNA Administration Tamsulosin HCl 0.4 mg 01/12/20 21:00 01/12/20 19:53 Flomax PO 0.4 mg HS JENNA Administration - Exam General Appearance: awake alert Eye: anicteric sclera ENT: moist mucosa Neck: supple Heart: RRR Respiratory: CTAB, normal chest expansion Gastrointestinal: soft, non-tender Psychiatric: normal affect, normal behavior Hosp A/P (1) Renal mass Code(s): N28.89 - OTHER SPECIFIED DISORDERS OF KIDNEY AND URETER Status: Acute (2) Hematuria Code(s): R31.9 - HEMATURIA, UNSPECIFIED Status: Acute (3) Hep C w/o coma, chronic Code(s): B18.2 - CHRONIC VIRAL HEPATITIS C Status: Chronic (4) Schizophrenia Code(s): F20.9 - SCHIZOPHRENIA, UNSPECIFIED Status: Chronic - Plan CT guided biopsy likely today. Pt is on nicotine patch. Pt is on PRN IV morphine for pain. Chronic encephalopathy in the setting of underlying dementia
[2020-01-13] MEDS ORDERED: Sodium Bicarbonate 2.5 MEQ/5 ML VIAL ONE (13:18)
[2020-01-13] MEDS ORDERED: Midazolam HCl 2 mg/2 ml Vial ONE (13:18)
[2020-01-13] MEDS ORDERED: Fentanyl 100 MCG/2 ML VIAL ONE (13:18)
[2020-01-13] MEDS: ALPRAZolam 0.25 MG TAB PO PRN (15:08)
--- NOTE | 2020-01-13 15:54 | CT ---
: CT-guided biopsy of a right renal mass HISTORY: Right renal mass COMPARISON: none FINDINGS: Successful percutaneous right renal biopsy. A total of 2 18-gauge core biopsy samples were obtained. Lesional tissue is present. There are no immediate or postprocedure complications. TECHNIQUE: Consent obtained performing CT-guided biopsy of a right renal mass. Patient was placed in the prone position on the CT gantry. Right renal mass was identified. Skin was prepped and draped in a sterile fashion. 1% lidocaine, buffered with sodium bicarbonate used for local anesthesia. Under CT guidance, a 17-gauge metallic trocar was advanced into the right renal lesion. Total of 2 18-gauge core biopsy samples were obtained. Lesional tissue was present. Gelfoam was used to achieve hemostasis. Patient tolerated the procedure well. No immediate or postprocedural complications. Postprocedure CT demonstrates post procedure changes, without significant perinephric hematoma IMPRESSION: Successful CT-guided biopsy of the right kidney
[2020-01-13] MEDS: PARoxetine 20 MG TAB PO SCH (21:57)
[2020-01-13] MEDS: Finasteride 5 MG TAB PO SCH (21:57)
[2020-01-13] MEDS: Tamsulosin HCl 0.4 MG CAP PO SCH (21:58)
[2020-01-14 07:55] VITALS: BP 130/75; TEMP 97.8
[2020-01-14] MEDS: Haloperidol 5 MG TAB PO SCH (09:26)
[2020-01-14] MEDS: Divalproex Sodium 250 MG (DR) TAB PO SCH (09:27)
[2020-01-14] MEDS: Potassium Chloride 10 MEQ TAB PO SCH (09:27)
[2020-01-14] MEDS: Phenazopyridine HCl 97.5 MG TABLET PO SCH ×2 (09:27→12:26)
[2020-01-14] MEDS: Nicotine 21 MG PATCH TD SCH (09:28)
[2020-01-14] MEDS: Sodium Chloride 0.9% 1,000 ML IV SCH (09:28)
--- NOTE | 2020-01-14 09:30 | PRG ---
DATE OF SERVICE: 01/14/2020 SUBJECTIVE: No recent changes. The patient does not answer any of my questions today. OBJECTIVE: VITAL SIGNS: Afebrile. Vitals are stable. Appears to be having normal urine output based on number of voids and diapers. No acute distress. Unlabored breathing. CHEST: Symmetric chest expansion. HEART: Regular rate and rhythm. ABDOMEN: Soft, nontender, nondistended. No suprapubic tenderness. No flank tenderness today. SKIN: Warm and dry. LABORATORY STUDIES: No recent laboratory work. IMAGING STUDIES: Chest CT negative for metastatic disease, bone scan negative for metastatic disease. MRI was not possible as the patient would not be still for it. The radiologist has reviewed the CT and indicates that there is IVC involvement of the tumor thrombus. 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 Renal biopsy performed yesterday. We will await the biopsy results and then arrange referral to [facility] for nephrectomy with IVC thrombectomy, which is not a procedure that is performed here. TIME SPENT: 30 minutes spent in the patient's care. Job ID: [id number]
[2020-01-14] MEDS: ALPRAZolam 0.25 MG TAB PO PRN (10:20)
[2020-01-14 11:28] LABS: #Eosinphils 0.1 thou/uL (0.0-0.7); #Lymphocytes 0.8 thou/uL (1.20-3.40); #Monocytes 0.6 thou/uL (0.11-0.59); #Neutrophils 3.4 thou/uL (1.40-6.50); %Basophils 0.2 % (0.0-1.0); %Eosinophils 1.9 % (0.0-10.0); %Lymphocytes 16.4 % (21.0-51.0); %Monocytes 12.3 % (0.0-10.0); %Neutrophils 69.2 % (42.0-75.0); Hemoglobin 10.2 g/dL (14.0-18.0); Mean Corpuscular HGB CONC 32.7 g/dL (32.0-36.0); Mean Corpuscular Hemoglobin 27.6 pg (27.0-31.0); Mean Corpuscular Volume 84.5 fL (78.0-98.0); Mean Platelet Volume 6.1 fL (7.4-10.4); Platelet Count 101 thou/uL (130-400); RBC Distribution Width 15.1 % (11.5-14.5); Red Blood Cell (RBC) Count 3.71 mill/uL (4.70-6.10)
[2020-01-14 11:42] LABS: Anion Gap 10 mmol/L (10-20); BUN (Urea Nitrogen) 5 mg/dL (8.4-25.7); Calc. Creatinine Clearance 156 mL/min (70-130); Calcium 7.7 mg/dL (7.8-10.44); Carbon Dioxide 23 mmol/L (23-31); Chloride 111 mmol/L (98-107); Estimated GFR-MDRD Greater than 90; Glucose 104 mg/dL (80-115); Potassium 3.3 mmol/L (3.5-5.1); Sodium 141 mmol/L (136-145)
[2020-01-14] MEDS ORDERED: Potassium Chloride 20 MEQ TAB PO SCH (11:45)
--- NOTE | 2020-01-15 03:41 | DIS ---
DATE OF ADMISSION: 01/09/2020 DATE OF DISCHARGE: 01/14/2020 PRIMARY CARE PROVIDER: Saul Uriostegui MD DISCHARGE DIAGNOSES: 1. Renal mass. 2. Inferior vena cava thrombus. CONDITION OF PATIENT ON THE DAY OF DISCHARGE: Stable. I assessed Mr. Jung on the day of discharge. He denies any chest pain. Vital signs are stable. S1 and S2 are heard, regular. Lungs are clear to auscultation bilaterally. CONSULTATIONS DURING THIS HOSPITALIZATION: Urology, Dr. Danie Franklin. HOSPITAL COURSE: Mr. 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 He was seen by Urology Service. He had a chest CT that was negative for metastatic disease and bone scan that was negative for metastatic disease. He underwent CT-guided renal biopsy on January 13, 2020. He has been cleared for discharge by Urology Service. They will follow up on biopsy result and arrange referral to [facility] for nephrectomy with IVC thrombectomy, which is not a procedure that is performed here according to Urology Service. Many thanks for allowing me to participate in your patient's care. Please feel free to contact me with any questions or concerns. On the day of discharge, he has white count 5000, hemoglobin 10.2, and platelet count 101,000. Sodium 141, potassium 3.3, which is being replaced and creatinine 0.55. DISCHARGE DESTINATION: The patient's correction. DIET: Regular. ACTIVITY: No restrictions. POST ACUTE CARE FOLLOWUP: With primary care provider in 3 days. TOTAL AMOUNT OF TIME SPENT COORDINATING THIS DISCHARGE: 32 minutes. Job ID: [id number]
--- NOTE | 2020-01-16 13:12 | CT ---
CT-guided biopsy of a right renal mass HISTORY: Right renal mass COMPARISON: none FINDINGS: Successful percutaneous right renal biopsy. A total of 2 18-gauge core biopsy samples were obtained. Lesional tissue is present. There are no immediate or postprocedure complications. TECHNIQUE: Consent obtained performing CT-guided biopsy of a right renal mass. Patient was placed in the prone position on the CT gantry. Right renal mass was identified. Skin was prepped and draped in a sterile fashion. 1% lidocaine, buffered with sodium bicarbonate used for local anesthesia. Under CT guidance, a 17-gauge metallic trocar was advanced into the right renal lesion. Total of 2 18-gauge core biopsy samples were obtained. Lesional tissue was present. Gelfoam was used to achieve hemostasis. Patient tolerated the procedure well. No immediate or postprocedural complications. Postprocedure CT demonstrates post procedure changes, without significant perinephric hematoma IMPRESSION: Successful CT-guided biopsy of the right kidney Transcribed Date/Time: 01/16/2020 1:12 PM
== END 2020-01-14 16:30 | DRG 686 ==
LOC: ERS 17:59 → ONC 19:04
PROVIDERS: ADMIT Internal Medicine; ATTEND Internal Medicine
PROC: 0T9B70Z Drainage of Bladder with Drainage Device, Via Natural or Artificial Opening (ICD-10-PCS; 2020-01-09)
PROC: 0TB03ZX Excision of Right Kidney, Percutaneous Approach, Diagnostic (ICD-10-PCS; principal; 2020-01-13)
PROC: BW211ZZ Computerized Tomography (CT Scan) of Abdomen and Pelvis using Low Osmolar Contrast (ICD-10-PCS; 2020-01-13)
DX: C64.1 Malignant neoplasm of right kidney, except renal pelvis (principal); I82.220 Acute embolism and thrombosis of inferior vena cava; N13.8 Other obstructive and reflux uropathy; G89.29 Other chronic pain; K21.9 Gastro-esophageal reflux disease without esophagitis; G62.9 Polyneuropathy, unspecified; F10.10 Alcohol abuse, uncomplicated; F20.9 Schizophrenia, unspecified; F03.90 Unspecified dementia, unspecified severity, without behavioral disturbance, psychotic disturbance, mood disturbance, and anxiety; G47.00 Insomnia, unspecified; F32.9 Major depressive disorder, single episode, unspecified; K74.60 Unspecified cirrhosis of liver; B18.2 Chronic viral hepatitis C; F17.210 Nicotine dependence, cigarettes, uncomplicated; N40.1 Benign prostatic hyperplasia with lower urinary tract symptoms; Z79.82 Long term (current) use of aspirin; Z79.899 Other long term (current) drug therapy
CPT/HCPCS: 36415; 50200; 71260; 77012; 78306; 80048; 80053; 85025; 85610; 85730; 88305; 88333; 88334; 88341; 88342; 94760; A9503; J1630; J2250; J2270; J3010